=== PATIENT | female | born 1990 | race Caucasian/White ===

== ENCOUNTER 2017-12-14 15:34 | Emergency (ER) | payer SELFPAY ==
[2017-12-14] MEDS ORDERED: LORazepam 2 MG/ML SDV IVPUSH ONE ×2 (15:40→15:50)
[2017-12-14] MEDS ORDERED: Propofol 200 MG/20 ML SDV IV ONE (15:55)
[2017-12-14] MEDS ORDERED: Rocuronium 100 MG/10 ML MDV IV ONE (15:55)
[2017-12-14] MEDS ORDERED: Midazolam 1 MG/ML 2 ML SDV IV ONE (15:55)
[2017-12-14] MEDS ORDERED: Acetaminophen 650 MG Supp RECTAL ONE (15:55)
[2017-12-14] MEDS ORDERED: Lactated Ringers 1,000 ML IV ONE ×2 (15:55→16:20)
--- NOTE | 2017-12-14 16:17 | EDM.PDOC ---
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 Time Seen by Provider: 12/14/17 15:40 Source of Information: Reports: EMS Notes Reviewed History Limitations: Reports: Combative/Threatening, Other (delerious thrashing on [place] with 4 point restriant arms and legs 4 eople holding her down) - History of Present Illness INITIAL COMMENTS - FREE TEXT/NARRATIVE: combative no purpseful communication pat 8 parmedic called by police who found her walking in and out of traffic and falling down frequently, and had [place] Onset: Sudden Associated Symptoms: Reports: Fever/Chills - Related Data Allergies Allergy/AdvReac Type Severity Reaction Status Date / Time No Known Allergies Allergy Verified 03/28/15 08:16 Home Meds: Home Meds Vit #108/Iron/FA [ One Tablet] 1 each PO DAILY 02/06/15 [ History] Past Medical History - Past Health History Medical/Surgical History: Denies Medical/Surgical History Other HEENT History: glasses Review of Systems - Review of Systems Review Of Systems: See Below (delerious 106 temp paramedics) ED EXAM, GENERAL - Physical Exam Exam: See Below Exam Limited By: Other (gcs 8) General Appearance: Severe Distress Eye Exam: Bilateral Eye: Abnormal Pupil (fixed 4 mm conjugate) Ear Exam: Bilateral Ear: TM normal (no blackman sign ) Nose: Normal Inspection Throat/Mouth: Normal Inspection, Normal Oropharynx Head: Atraumatic Neck: Normal Inspection Respiratory/Chest: Normal Breath Sounds Cardiovascular: Normal Peripheral Pulses, No Murmur, JVD, Other (sinus tach cardiacc hr 180, resp 35, 02 ssat 94 128/60's normal colored skin - pinkd cap fill <2 n oseiaures) (Female) Exam: Normal External Exam Back Exam: Normal Inspection Extremities: Other (multiple abrasion on the knees ang legs no petechiae or ecchymosis) Course - Vital Signs Text/Narrative:: TRANSFER TO DR CUELLAR INTUBATED TEMP DOWN TO 99.4, RO RHABDOMYOLYSIS, METHAMPHETAMINE OD HYPERTHERMIA CONTROLLED Last Recorded V/S: intubate 7 ET, to 24 cn, cords visualized and cait breath sounds axill and ant chest - Orders/Labs/Meds Orders: Active Orders 24 hr Category Date Time Status COMPREHENSIVE METABOLIC PN,CMP [CHEM] Stat Lab 12/14/17 15:41 Results ETHANOL BLOOD MEDICAL [CHEM] Stat Lab 12/14/17 15:41 Received TROPONIN I [CHEM] Stat Lab 12/14/17 15:41 Received Labs: Laboratory Tests 12/14/17 12/14/17 Range/Units 15:41 15:41 WBC 7.7 (4.5-12.0) X10-3/uL RBC 4.29 (3.23-5.20) x10(6)uL Hgb 12.4 (11.5-15.5) g/dL Hct 37.0 (30.0-51.3) % MCV 86.1 (80-96) fL MCH 28.9 (27.7-33.6) pg MCHC 33.5 (32.2-35.4) g/dL RDW 13.6 (11.5-15.5) % Plt Count 265 (125-369) X10(3)uL MPV 8.5 (7.4-10.4) fL Neut % (Auto) 52.2 (46-82) % Lymph % (Auto) 35.7 (13-37) % [place] % (Auto) 7.7 (4-12) % Eos % (Auto) 4 (1.0-5.0) % Baso % (Auto) 1 (0-2) % Neut # (Auto) 4.0 (1.6-8.3) # Lymph # (Auto) 2.7 (0.6-5.0) # [place] # (Auto) 0.6 (0.0-1.3) # Eos # (Auto) 0.3 (0.0-0.8) # Baso # (Auto) 0.1 (0.0-0.2) # Sodium 140 (135-145) mmol/L Potassium 4.3 (3.5-5.3) mmol/L Chloride 108 (100-110) mmol/L Carbon Dioxide 17 L (21-32) mmol/L BUN 17 (7-18) mg/dL Creatinine 1.9 H (0.55-1.02) mg/dL Est Cr Clr Drug Dosing TNP Estimated GFR (MDRD) 31 L (>60) BUN/Creatinine Ratio 8.9 L (9-20) Glucose 204 H (80-116) mg/dL Calcium 8.3 L (8.6-10.2) mg/dL Departure - Departure Time of Disposition: 16:50 (DR CUELLAR ACCEPTED 1600 ) Disposition: DC/Tfer to Acute Hospital 02 Condition: Serious, Critical Clinical Impression: Methamphetamine intoxication, Hyperthermia - Discharge Information *PRESCRIPTION DRUG MONITORING PROGRAM REVIEWED*: No *COPY OF PRESCRIPTION DRUG MONITORING REPORT IN PATIENT [place]: No - My Orders Last 24 Hours: My Active Orders 12/14/17 15:41 COMPREHENSIVE METABOLIC PN,CMP [CHEM] Stat ETHANOL BLOOD MEDICAL [CHEM] Stat TROPONIN I [CHEM] Stat - Assessment/Plan Last 24 Hours: My Active Orders 12/14/17 15:41 COMPREHENSIVE METABOLIC PN,CMP [CHEM] Stat ETHANOL BLOOD MEDICAL [CHEM] Stat TROPONIN I [CHEM] Stat
[2017-12-14] MEDS ORDERED: Diphtheria,Pertussis(Acell),Tetanus Vaccine 0.5 ML SDV IM ONE (16:25)
[2017-12-14 19:56] VITALS: BP 91/54
== END 2017-12-14 16:54 ==
LOC: FB.ED 15:34
DX: S80.212A Abrasion, left knee, initial encounter (principal); S80.211A Abrasion, right knee, initial encounter; F15.120 Other stimulant abuse with intoxication, uncomplicated; R50.9 Fever, unspecified; Z23 Encounter for immunization
CPT/HCPCS: 31500; 36415; 51702; 80053; 80305; 81001; 82550; 84484; 85025; 90471; 90715; 96374; 99285; A9270; G0390; G0480; J2060; J2250; J2704; J7120